=== PATIENT | female | born 1955 | race Two or more races ===

== ENCOUNTER 2018-02-11 20:01 | Emergency (ER) | payer BC, MEDICAID ==
[~2018-02-11] VITALS: Ht 157.5 cm; Wt 72.6 kg
[2018-02-11 22:58] VITALS: BP 131/65
[2018-02-11] MEDS ORDERED: ONDANSETRON ODT 4 MG TAB PO ONE (23:30)
[2018-02-11] MEDS ORDERED: MEPERIDINE HCL (50 MG/ML) 1 ML VIAL IM ONE (23:30)
== END 2018-02-12 00:56 | disposition home or self-care (01) ==
LOC: ER 20:04
DX: S82.832A Other fracture of upper and lower end of left fibula, initial encounter for closed fracture (principal); W01.0XXA Fall on same level from slipping, tripping and stumbling without subsequent striking against object, initial encounter; Y93.89 Activity, other specified; Y99.8 Other external cause status; Y92.89 Other specified places as the place of occurrence of the external cause
CPT/HCPCS: 29515; 73562; 73610; 73630; 96372; 99284; J2175; Q0162